=== PATIENT | female | born 1990 | race Caucasian/White ===

== ENCOUNTER 2022-01-28 08:00 | Inpatient (IN) | payer BC, OTHER ==
[2022-01-28 09:24] LABS: BASO % 0.1 % (0-2.0); HEMATOCRIT 34.4 % (32.4-45.2); LYMPH % 7.6 % (8-40); MCH 32.7 pg (25.7-33.7); MEAN CELL VOLUME 93.2 fl (80-96); MEAN PLT VOLUME 9.8 fl (7.5-11.1); MONO % 3.5 % (3.8-10.2); NEUT % 88.8 % (42.8-82.8); PLATELET COUNT 178 10^3/uL (134-434); RBC 3.69 M/mm3 (3.60-5.2); RDW 12.7 % (11.6-15.6); WHITE BLOOD COUNT 15.6 K/mm3 (4.0-10.0)
[2022-01-28 09:31] LABS: INR 0.98 (0.83-1.09); PROTHROMBIN TIME (PATIENT) 11.3 SEC (9.7-13.0)
[2022-01-28 09:33] LABS: CORD BASE EXCESS -5.8 mmol/L (0-2); CORD HCO3 20.2 mmHg (20-29); CORD PCO2 41.7 mmHg (30-78); CORD pH 7.304 (7.14-7.44)
[2022-01-28 09:34] LABS: ACTIVATED PTT 25.4 SECONDS (25.2-36.5)
[2022-01-28 09:36] LABS: CORD BASE EXCESS -5.6 mmol/L (0-2); CORD HCO3 21.2 mmHg (20-29); CORD PCO2 46.1 mmHg (30-78); CORD pH 7.281 (7.14-7.44)
[2022-01-28 09:49] VITALS: BMI 30.9
[2022-01-28 09:53] LABS: CALCIUM 8.4 mg/dL (8.5-10.1)
[2022-01-28 09:54] LABS: BLOOD UREA NITROGEN 7.9 mg/dL (7-18)
[2022-01-28 09:57] LABS: CREATININE 0.8 mg/dL (0.55-1.3)
[2022-01-28] MEDS ORDERED: BENZOCAINE 20% 57 GM BOTTLE TP PRN (10:02)
[2022-01-28] MEDS ORDERED: METHYLERGONOVINE MALEATE 0.2 MG/1 ML AMP IM PRN (10:02)
[2022-01-28] MEDS ORDERED: IBUPROFEN 600 MG TABLET (FP) PO PRN (10:02)
[2022-01-28] MEDS ORDERED: ACETAMINOPHEN 325 MG TABLET (FP) PO PRN (10:02)
[2022-01-28] MEDS ORDERED: oxyCODONE HCL 5 MG TABLET PO PRN (10:02)
[2022-01-28] MEDS ORDERED: WITCH HAZEL 50% (TUCKS) 40 PAD/JAR PAD TP PRN (10:02)
[2022-01-28] MEDS ORDERED: BENZOCAINE 28 GM HEMORRHOIDAL OINTMENT TP PRN (10:02)
[2022-01-28] MEDS ORDERED: BISACODYL 10 MG SUPP.RECT RC PRN (10:02)
[2022-01-28] MEDS ORDERED: OXYTOCIN 20 UNITS in 0.9% NS 20 UNIT/1,000 ML INFUS.BAG IV SCH (10:15)
[2022-01-28] MEDS: FERROUS SO4 325 MG TABLET (FP) PO SCH ×2 (12:00→17:00)
[2022-01-29 08:50] LABS: BASO % 0.2 % (0-2.0); EOS % 0.7 % (0-4.5); HEMATOCRIT 29.5 % (32.4-45.2); HEMOGLOBIN 9.9 GM/dL (10.7-15.3); LYMPH % 17.4 % (8-40); MCH 31.6 pg (25.7-33.7); MCHC 33.4 g/dl (32.0-36.0); MEAN CELL VOLUME 94.6 fl (80-96); MEAN PLT VOLUME 9.6 fl (7.5-11.1); MONO % 7.9 % (3.8-10.2); NEUT % 73.8 % (42.8-82.8); PLATELET COUNT 162 10^3/uL (134-434); RBC 3.12 M/mm3 (3.60-5.2); RDW 13.3 % (11.6-15.6)
[2022-01-29] MEDS: FERROUS SO4 325 MG TABLET (FP) PO SCH ×3 (10:03→17:46)
[2022-01-29] MEDS: PRENATAL VITAMINS W/ FOLIC ACID TABLET (FP) PO SCH (10:03)
[2022-01-29 11:54] VITALS: TEMP 98.3
[2022-01-29] MEDS ORDERED: SENNOSIDES/DOCUSATE COMBO (SENNA PLUS) TABLET (UD) PO PRN (22:00)
[2022-01-30] MEDS: FERROUS SO4 325 MG TABLET (FP) PO SCH ×2 (09:50→12:30)
[2022-01-30] MEDS: PRENATAL VITAMINS W/ FOLIC ACID TABLET (FP) PO SCH (09:51)
[2022-01-30 10:40] VITALS: BP 106/65; PULSE 84; RESP 16
== END 2022-01-30 12:40 | disposition home or self-care (01) | DRG 807 ==
LOC: JLDR 08:00 → J3W 10:40
PROVIDERS: ADMIT Obstetrics & Gynecology; ATTEND Obstetrics & Gynecology
PROC: 10E0XZZ Delivery of Products of Conception, External Approach (ICD-10-PCS; principal; 2022-01-28)
PROC: 0HQ9XZZ Repair Perineum Skin, External Approach (ICD-10-PCS; 2022-01-28)
DX: O32.6XX0 Maternal care for compound presentation, not applicable or unspecified (principal); Z37.0 Single live birth; O70.0 First degree perineal laceration during delivery; Z3A.39 39 weeks gestation of pregnancy
CPT/HCPCS: 36415; 36600; 59409; 80048; 82803; 85025; 85610; 85730; 86780; 86850; 86900; 86901; C9803-CS; U0003; U0005